=== PATIENT | male | born 1985 | race Caucasian/White ===

== ENCOUNTER 2017-02-20 23:46 | Emergency (ER) | payer OTHER ==
[~2017-02-20] VITALS: Ht 190.5 cm; Wt 85.0 kg
[~2017-02-20 23:46] MED LIST: PRLSR20 PO
[2017-02-20 23:49] VITALS: TEMP 36.7; Ht 190.5 cm; Wt 85.0 kg
[2017-02-21] MEDS ORDERED: INDO-24 PO (00:21)
[2017-02-21] MEDS ORDERED: KETOROLAC TROMETHAMINE 60 MG/2 ML VIAL IM STA (00:29)
[2017-02-21] MEDS ORDERED: DEXAMETHASONE SOD INJ 10 MG/ML VIAL IM ONE (00:30)
[2017-02-21] MEDS ORDERED: HYDROCODONE/ACETAMOPHEN 5/325MG TAB PO ONE (00:30)
[2017-02-21] MEDS ORDERED: CYCL10TA6 PO (01:56)
[2017-02-21] MEDS ORDERED: PRED20TA PO (01:56)
[2017-02-21] MEDS ORDERED: HYDR-5688 PO (01:56)
[2017-02-21 02:00] VITALS: BP 140/82; PULSE 87; O2SAT 96
[2017-02-21] MEDS ORDERED: NORCO 5/325MG HOME PACK PO ONE (02:00)
--- NOTE | 2017-02-21 07:20 | DIAGNOSTIC IMAGING REPORT ---
L-SPINE MIN 4 VIEWS ROUTINE CLINICAL HISTORY: Low back pain. COMPARISON: Lumbar spine radiograph June 30, 2015. FINDINGS: Alignment of lumbar spine is anatomic. Vertebral body heights are maintained. There is no fracture or suspicious lesion. Disc spaces are preserved. IMPRESSION: Unremarkable lumbar spine radiographs. Electronically signed by: Eduard Dickerson M.D. 02/21/2017 7:19 AM Dictated Date/Time: 02/21/2017 7:18 AM
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
== END 2017-02-21 01:56 | disposition home or self-care (01) ==
LOC: C.EDB 23:46 → C.EDA 02-21 01:56
DX: M54.5 Low back pain (principal); Z79.52 Long term (current) use of systemic steroids

== ENCOUNTER 2017-05-23 18:49 | Observation (INO) | payer OTHER ==
[~2017-05-23] VITALS: Ht 190.5 cm; Wt 88.6 kg
[~2017-05-23 18:49] MED LIST changes: +HYDR-5688 PO; +INDO-24 PO; +PRED20TA PO
[2017-05-23 18:53] VITALS: Ht 190.5 cm; Wt 88.6 kg
[2017-05-23] MEDS ORDERED: GI COCKTAIL PO STA (19:19)
[2017-05-23] MEDS ORDERED: SUCRALFATE 1 GM TAB PO STA (19:19)
[2017-05-23] MEDS ORDERED: FAMOTIDINE 20 MG TAB PO STA (19:19)
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
[2017-05-23] MEDS ORDERED: LIDOCAINE HCL 2% VISC SOLN 20 ML UDC ONE (19:37)
[2017-05-23] MEDS ORDERED: ALUMINUM/MAGNESIUM SUSP 30 ML UDC ONE (19:37)
--- NOTE | 2017-05-23 19:48 | DIAGNOSTIC IMAGING REPORT ---
CHEST ONE VIEW PORTABLE CLINICAL HISTORY: Chest pain. COMPARISON STUDY: Chest radiograph 12/16/[address] April 27, 2015. FINDINGS: Lung volumes are normal. There is no pneumothorax or pleural effusion. Pulmonary vascularity is normal. Cardiac size is normal. There is no evidence of pulmonary edema. IMPRESSION: No acute cardiopulmonary findings. Electronically signed by: Eduard Dickerson M.D. 05/23/2017 7:47 PM Dictated Date/Time: 05/23/2017 7:43 PM
[2017-05-23 19:59] LABS: BASO % 0.4 %; BASO ABS # 0.02 K/uL (0-0.2); COMPLETE YES; EOS % 2.7 %; HEMATOCRIT 45.2 % (42-52); IG% 0.2 %; LYMPH % 26.4 %; LYMPH ABS # 1.26 K/uL (1.2-3.4); MEAN CELL VOLUME 86.8 fL (80-100); MEAN CORPUSCULAR HEMOGLOBIN 29.9 pg (25-34); MEAN CORPUSCULAR HGB CONC 34.5 g/dl (32-36); MEAN PLATELET VOLUME 10.1 fL (7.4-10.4); MONO % 8.8 %; NEUT % 61.5 %; PLATELET COUNT 203 K/uL (130-400); RED BLOOD COUNT 5.21 M/uL (4.7-6.1); WHITE BLOOD COUNT 4.78 K/uL (4.8-10.8)
[2017-05-23 20:19] LABS: ALT/SGPT 36 U/L (12-78); BLOOD UREA NITROGEN 12 mg/dl (7-18); BUN/CREATININE RATIO 14.6 (10-20); CALCIUM 8.6 mg/dl (8.5-10.1); CARBON DIOXIDE 25 mmol/L (21-32); CHLORIDE 109 mmol/L (98-107); CREATININE 0.81 mg/dl (0.60-1.40); GLUCOSE 89 mg/dl (70-99); POTASSIUM 3.8 mmol/L (3.5-5.1); SODIUM 143 mmol/L (136-145)
[2017-05-23 20:30] LABS: ALKALINE PHOSPHATASE 106 U/L (45-117); AST/SGOT 18 U/L (15-37)
[2017-05-23] MEDS ORDERED: ASPIRIN 81 MG CHEW PO STA (21:20)
[2017-05-23 22:09] VITALS: O2SAT 97
[2017-05-23] MEDS ORDERED: ALBUTEROL 0.083% NEBU SOLN 3 ML VIAL INH STA (22:33)
[2017-05-23] MEDS ORDERED: ONDANSETRON INJ 2 MG/ML 2 ML VIAL IV PRN (22:45)
[2017-05-23] MEDS ORDERED: IV FLUIDS COMPLETED PRN (23:30)
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
[2017-05-23 23:45] VITALS: BP 136/88; PULSE 61; TEMP 36.6; O2SAT 98; BMI 24.4
[2017-05-24 03:48] VITALS: BP 113/63; PULSE 63; TEMP 36.5; O2SAT 97
[2017-05-24 07:53] VITALS: BP 136/76; PULSE 57; TEMP 36.9; O2SAT 98
[2017-05-24 15:36] VITALS: BP 115/69; PULSE 58; TEMP 36.7; O2SAT 97
--- NOTE | 2017-05-24 16:59 | Discharge Instructions ---
Discharge Instructions Date of Service May 24, 2017. Admission Reason for Admission: Chest Pain, Rule Out Acute Myocardial Infarction Discharge Discharge Diagnosis / Problem: chest pain Discharge Goals Goal(s): Diagnostic testing Activity Recommendations Activity Limitations: resume your previous activity . Instructions / Follow-Up Instructions / Follow-Up the chest pain fortunately does not appear to have been cardiac - your stress echo appeared normal (i'm still waiting on the official read for the report but cardiology let me know personally) and with your cardiac enzymes trending down, everything appears reassuring from a "was this a heart attack" perspective -since blood clots are common and could cause similar symptoms as well as a slight rise in troponin, we checked the lab test called d-dimer to rule out clotting - it's very sensitive for clots, and a negative test is upwards of a 98 % chance there are not clots going on - yours was completely negative -with everything looking reassuring, it's most likely that rib muscle spasm was the culprit - because it can make it hard to breathe, you can feel a heaviness in your chest, and the radiation around to the back certainly would fit with the outline of how ribs go -the elevated troponin almost had to simply be an outlier - we define normal labs as the mean value, and 2 standard deviations above, 2 below. because of that, you can have 2.5% of people just out of range either direction that are still normal. more than likely (especially since your troponin was 0.001 above our upper limits of normal on the first test) it was just a "normal outlier" or a false positive. you can always discuss further with your regular docs as well Current Hospital Diet Patient's current hospital diet: AHA Diet (Heart Healthy) Discharge Diet Recommended Diet: Regular Diet Pending Studies Studies pending at discharge: no Medical Emergencies . Who to Call and When: Medical Emergencies: If at any time you feel your situation is an emergency, please call 911 immediately. . Non-Emergent Contact Non-Emergency issues call your: Primary Care Provider . . "Provider Documentation" section prepared by Chandan Mason. . VTE Core Measure Inpt VTE Proph given/why not?: Treatment not indicated
[2017-05-24 17:22] VITALS: BP 115/69; PULSE 58; TEMP 36.7; O2SAT 97
--- NOTE | 2017-05-24 18:16 | Discharge Summary ---
Discharge Summary Date of Service May 24, 2017. Discharge Summary Admission Date: May 23, 2017 at 22:44 Discharge Date: May 24, 2017 Discharge Disposition: Home Principal Diagnosis: chest pain likely muscular Procedures: stress echo negative for ischemia Last 24 Hours Test 05/23/17 19:31 05/23/17 22:00 05/24/17 05:39 05/24/17 14:51 White Blood Count 4.78 K/uL Red Blood Count 5.21 M/uL Hemoglobin 15.6 g/dL Hematocrit 45.2 % Mean Corpuscular Volume 86.8 fL Mean Corpuscular Hemoglobin 29.9 pg Mean Corpuscular Hemoglobin Concent 34.5 g/dl Platelet Count 203 K/uL Mean Platelet Volume 10.1 fL Neutrophils (%) (Auto) 61.5 % Lymphocytes (%) (Auto) 26.4 % Monocytes (%) (Auto) 8.8 % Eosinophils (%) (Auto) 2.7 % Basophils (%) (Auto) 0.4 % Neutrophils # (Auto) 2.94 K/uL Lymphocytes # (Auto) 1.26 K/uL Monocytes # (Auto) 0.42 K/uL Eosinophils # (Auto) 0.13 K/uL Basophils # (Auto) 0.02 K/uL RDW Standard Deviation 39.7 fL RDW Coefficient of Variation 12.4 % Immature Granulocyte % (Auto) 0.2 % Immature Granulocyte # (Auto) 0.01 K/uL Sodium Level 143 mmol/L Potassium Level 3.8 mmol/L Chloride Level 109 mmol/L Carbon Dioxide Level 25 mmol/L Anion Gap 9.0 mmol/L Blood Urea Nitrogen 12 mg/dl Creatinine 0.81 mg/dl Est Creatinine Clear Calc Drug Dose 159.4 ml/min Estimated GFR () 138.2 Estimated GFR (Non- 119.3 BUN/Creatinine Ratio 14.6 Random Glucose 89 mg/dl Calcium Level 8.6 mg/dl Total Bilirubin 0.9 mg/dl Direct Bilirubin 0.2 mg/dl Aspartate Amino Transf (AST/SGOT) 18 U/L Alanine Aminotransferase (ALT/SGPT) 36 U/L Alkaline Phosphatase 106 U/L Total Creatine Kinase 48 U/L Creatine Kinase MB < 0.5 ng/ml Creatine Kinase MB Ratio Troponin I 0.046 ng/ml 0.040 ng/ml 0.037 ng/ml Total Protein 6.9 gm/dl Albumin 3.7 gm/dl Lipase 129 U/L D-Dimer < 190 ug/L FEU Medication Reconciliation Medication Profile: No Active Prescriptions or Reported Meds Discharge Exam Physical Exam: General Appearance: no apparent distress Eyes: EOMI ENT: hearing grossly normal Neck: trachea midline Respiratory/Chest: no respiratory distress, no accessory muscle use, + pertinent finding (no tenderness no asymmetric ROM) 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 Discharge Instructions Please refer to the electronic Patient Visit Report (Discharge Instructions) for additional information.
--- NOTE | 2017-05-24 18:21 | EXERCISE STRESS ECHO ---
*NOTICE TO RECEIVING [employer] This information is strictly Confidential and protected under [place] law. [place] law prohibits you from making any further disclosure of this information unless further disclosure is expressly permitted by the written consent of the person to whom it pertains or is authorized by law. A general authorization for the release of medical or other information is not sufficient for this purpose. Hospital accepts no responsibility if the information is made available to any other person, INCLUDING THE PATIENT. Interpretation Summary * Name: TERELL RICHTER Study Date: 05/24/2017 11:31 AM BP: 139/79 mmHg * Patient Location: C.2T\S\E216\S\1 HR: 53 * : 1985 (M/d/yyyy) Gender: Male Height: 75 in * Age: 31 yrs Ethnicity: CA Weight: 195 lb * Ordering Physician: Howie Sanders * Referring Physician: Self, Referred * Performed By: Salima Morales [facility] * * Reason For Study: CHEST PAIN * BSA: 2.2 m2 * -- Conclusions -- * There is borderline concentric left ventricular hypertrophy. * Left ventricular systolic function is normal. * Normal diastolic function * Normal maximal exercise treadmill test without evidence of inducible ischemia. Procedure Details * ECHOEX, CPT #[id number] * ECHO COLOR FLOW, CPT #[id number] * ECHO DOPPLER, CPT #[id number] Left Ventricular Findings with Stress * Normal maximal exercise treadmill test without evidence of inducible ischemia. Left Ventricle * The left ventricle is normal in size. * There is borderline concentric left ventricular hypertrophy. * Left ventricular systolic function is normal. * Normal diastolic function * The left ventricular wall motion is normal. Right Ventricle * The right ventricle is normal in size and function. Atria * The left atrial size is normal. * Right atrial size is normal. Mitral Valve * The mitral valve anatomy is normal. * There is no mitral regurgitation noted. Tricuspid Valve * The tricuspid valve is not well visualized, but is grossly normal. * Significant tricuspid regurgitation is absent. Aortic Valve * The aortic valve is normal in structure and function. * The aortic valve is trileaflet. * No hemodynamically significant valvular aortic stenosis. * There is no significant aortic regurgitation. Great Vessels * The aortic root is normal size. Pericardium * There is no pericardial effusion. Stress Parameters * Normal baseline electrocardiogram. * Stress ECG: No ST changes. No arrhythmias. * The stress portion of this study was personally supervised by the undersigned interpreting physician. * Rest heart rate was '53' BPM. * Rest blood pressure was '139/79' * Maximum heart rate achieved was 169 bpm. * Maximum heart rate was 88 % of maximum age-predicted heart rate. * Maximum blood pressure was '163/84' * Total exercise time was '10:04' * Maximum exercise MET level achieved was '11.80' METS * Maximum treadmill speed was '4.20' miles per hour. * Maximum treadmill elevation was '16.00'% grade. Left Ventricular Findings with Stress * Normal baseline EKG without ST segement changes during the test. Normal baseline echocardiogram with normal augmentation and no evidence of inducible wall motion abnormalities. Normal HR and BP response to exercise. No symptoms Delarosa treadmill score: 10 (low risk) MMode 2D Measurements and Calculations IVSd 1.4 cm IVSs 1.4 cm LVIDd 5.6 cm LVIDs 3.7 cm LVPWd 1.1 cm LVPWs 1.6 cm IVS/LVPW 1.2 FS 34.2 % EDV(Teich) 155.6 ml ESV(Teich) 58.2 ml EF(Teich) 62.6 % EDV(cubed) 178.5 ml ESV(cubed) 50.8 ml EF(cubed) 71.6 % % IVS thick 1.6 % % LVPW thick 38.0 % LV mass(C)d 298.8 grams LV mass(C)dI 137.6 grams/m\S\2 LV mass(C)s 203.7 grams LV mass(C)sI 93.8 grams/m\S\2 SV(Teich) 97.3 ml SI(Teich) 44.8 ml/m\S\2 SV(cubed) 127.7 ml SI(cubed) 58.8 ml/m\S\2 Ao root diam 3.2 cm Ao root area 8.0 cm\S\2 LA dimension 2.8 cm LA/Ao 0.88 LVOT diam 2.1 cm LVOT area 3.4 cm\S\2 LVAd ap4 30.2 cm\S\2 LVLd ap4 7.4 cm EDV(MOD-sp4) 105.5 ml EDV(sp4-el) 105.5 ml LVAs ap4 19.8 cm\S\2 LVLs ap4 6.4 cm ESV(MOD-sp4) 52.0 ml ESV(sp4-el) 52.0 ml EF(MOD-sp4) 50.7 % EF(sp4-el) 50.7 % LVAd ap2 35.1 cm\S\2 LVLd ap2 8.5 cm EDV(MOD-sp2) 117.0 ml EDV(sp2-el) 122.4 ml LVAs ap2 19.1 cm\S\2 LVLs ap2 6.5 cm ESV(MOD-sp2) 48.3 ml ESV(sp2-el) 48.0 ml EF(MOD-sp2) 58.7 % EF(sp2-el) 60.8 % LVLd %diff 13.8 % EDV(MOD-bp) 119.4 ml LVLs %diff 0.78 % ESV(MOD-bp) 50.4 ml EF(MOD-bp) 57.8 % SV(MOD-sp4) 53.5 ml SI(MOD-sp4) 24.6 ml/m\S\2 SV(MOD-sp2) 68.7 ml SI(MOD-sp2) 31.7 ml/m\S\2 SV(MOD-bp) 69.0 ml SI(MOD-bp) 31.8 ml/m\S\2 SV(sp4-el) 53.4 ml SI(sp4-el) 24.6 ml/m\S\2 SV(sp2-el) 74.4 ml SI(sp2-el) 34.3 ml/m\S\2 Doppler Measurements and Calculations MV E max linnette 65.2 cm/sec MV A max linnette 44.8 cm/sec MV E/A 1.5 MV dec time 0.23 sec Ao V2 max 100.0 cm/sec Ao max PG 4.0 mmHg Ao max PG (full) -0.36 mmHg JAVIER(V,A) 3.6 cm\S\2 JAVIER(V,D) 3.6 cm\S\2 LV V1 max PG 4.4 mmHg LV V1 max 104.4 cm/sec PA V2 max 104.8 cm/sec PA max PG 4.4 mmHg PI max linnette 158.9 cm/sec PI max PG 10.1 mmHg PI dec slope 114.8 cm/sec\S\2 PI P1/2t 405.5 msec TR max linnette 223.6 cm/sec
--- NOTE | 2017-07-17 13:19 | Cardiology Consultation ---
Cardiology Consultation Date of Service Jul 17, 2017. Cardiology Consultation The patient was not seen during this hospitalization. A stress echocardiogram was performed by Dr. Hill.
== END 2017-05-24 18:45 | disposition home or self-care (01) ==
LOC: C.EDB 18:50 → C.2T 22:44 → ENRESERV 22:49
PROVIDERS: ADMIT Hospitalist; ATTEND Family Medicine
DX: R07.2 Precordial pain (principal); I45.6 Pre-excitation syndrome